=== PATIENT | female | born 1965 | race Caucasian/White ===

== ENCOUNTER 2020-01-29 10:38 | Emergency (ER) | payer OTHER, SELFPAY ==
--- NOTE | ~2020-01-29 | CT_ITS ---
EXAMINATION: CT lumbar spine wo [facility] EXAM DATE: 01/29/2020 11:20 INDICATION: worsened lumbar pain with radiation [id number]. TECHNIQUE: Spiral CT of the lumbar spine was performed without contrast. Axial, coronal and sagittal images were reviewed. The dose-length product (DLP) for this examination was 563.72 mGy-cm. The e xposure was tailored according to patient size (auto mA exposure control), and iterative reconstructi on (ASIR) was used as additional dose reduction technique. There is no prior study for comparison. FINDINGS: There is mild chronic compression fracture of the T12 vertebral body. Mild to moderate loss of the disc heights at L4-5 and L5-S1, mild at the other lumbar levels. There are no acute fractures identified. No spondylolysis. Paraspinal soft tissue is unremarkable. There are no osteoblastic or o steolytic lesions identified. Level by level evaluation: T12-L1: There is a mild diffuse disc bulge. Facet arthropathy: None. Neural foraminal stenosis: No stenosis. Central canal stenosis: No stenosis. L1-L2: There is a mild diffuse disc bulge. Facet arthropathy: None. Neural foraminal stenosis: No stenosis. Central canal stenosis: No stenosis. L2-L3: There is a mild diffuse disc bulge. Facet arthropathy: Mild. Neural foraminal stenosis: No stenosis. Central canal stenosis: No stenosis. L3-L4: There is a mild to moderate diffuse disc bulge. Facet arthropathy: Mild to moderate. Neural foraminal stenosis: Mild left. Central canal stenosis: Moderate. L4-L5: There is a mild to moderate diffuse disc bulge. Facet arthropathy: Moderate to severe. Neural foraminal stenosis: Moderate left mild to moderate right. Central canal stenosis: Moderate. L5-S1: There is a mild diffuse disc bulge. Facet arthropathy: Mild to moderate. Neural foraminal stenosis: No stenosis. Central canal stenosis: Mild to moderate. IMPRESSION: 1. Mild to moderate lumbar spondylosis. 2. Chronic T12 compression fracture. 3. No acute findings. Reviewed, dictated and finalized at location B. 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
[2020-01-29 10:58] VITALS: BP 106/87; PULSE 87; RESP 14; TEMP 36.6; O2SAT 99
[2020-01-29] MEDS: KETOROLAC 30 MG/ML VIAL (*BKC) IM (11:07)
--- NOTE | 2020-01-29 11:08 | ED.GENADULT ---
HPI - General Adult General Chief complaint: Back Pain/Injury Stated complaint: Back Pain Time Seen by Provider: 01/29/20 10:48 Source: patient Mode of arrival: ambulatory Limitations: no limitations History of Present Illness HPI narrative: Patient presents with chief complaint of exacerbation of low back pain that has exponentially increased in the past 48 hours. Patient states she has had low back pain for years however over the past 8 months her back pain has increased and cause radiation down both of her legs. Patient states her primary care is aware and she was started on meloxicam, Flexeril and gabapentin however they have not improve her symptoms. Patient states she also was prescribed physical therapy which ended a few months ago without any improvement in her symptoms. Patient states she has contacted her primary care multiple times to let her know and she was informed yesterday to present to the emergency department. Patient reports she has had x-rays of her lumbar spine and was informed that she had arthritis but she has not had any additional imaging. Patient denies loss of bowel or bladder function or saddle paresthesias. She states that she cannot lie flat due to increase of pain. She reports increased the pain with lifting her legs and walking. Patient states she also has peripheral neuropathy. Patient denies any activities recently that correlate to her exacerbation of her pain denies any falls or recent injuries. Related Data Allergies Allergy/AdvReac Type Severity Reaction Status Date / Time CITALOPRAM HYDROBROMIDE Allergy Hives Uncoded 01/29/20 11:06 Review of Systems Review of Systems: Narrative: CONSTITUTIONAL: Denies fever, chills, or sweats. EYES: Denies visual changes, redness, or discharge. ENT: Denies rhinorrhea, congestion, sore throat, or otalgia. CARDIOVASCULAR: Denies chest pain, palpitations, or edema. RESPIRATORY: Denies cough or dyspnea. GASTROINTESTINAL: Denies abdominal pain, nausea, vomiting, or diarrhea. GENITOURINARY: Denies dysuria or hematuria. SKIN: Denies rash or itching. MUSCULOSKELETAL: Denies back pain, joint pain, or myalgia. NEUROLOGIC: Denies headache, numbness, dizziness, or weakness. PSYCHIATRIC: Denies anxiety or depression. Exam Narrative: Exam Narrative: GENERAL: Well-appearing, well-nourished, and in no acute distress. HEAD: Normocephalic, atraumatic. EYES: PERRLA and EOMI. NECK: ROM intact CHEST: Clear to auscultation. No respiratory distress. No wheezes rales or rhonchi HEART: Regular rate and rhythm. No murmur heard. Normal peripheral pulses. BACK: No vertebral point tenderness along entire spine. sensation, cap refill, and pulses intact to distal extremities. No saddle paresthesias. gait and weight bearing intact. Patient refused to lay flat for straight leg raise test. Declined rectal exam. States rectum is fine. EXTREMITIES: Normal range of motion. No edema. SKIN: Warm, dry, no rash. NEURO: No focal deficits. Alert and oriented x3. PSYCH: Normal mood and affect. Course Vital Signs Vital signs: Vital Signs Temperature 97.9 F 01/29/20 10:58 Pulse Rate 87 01/29/20 10:58 Respiratory Rate 14 01/29/20 10:58 Blood Pressure 106/87 01/29/20 10:58 Pulse Oximetry 99 01/29/20 10:58 Temperature 97.9 F 01/29/20 10:58 Pulse Rate 87 01/29/20 10:58 Respiratory Rate 14 01/29/20 10:58 Blood Pressure 106/87 01/29/20 10:58 Pulse Oximetry 99 01/29/20 10:58 Medical Decision Making MDM Narrative Medical decision making narrative: Patient has chronic spinal changes to her CT without acute findings. Patient not displaying signs of cauda equina. Discussed with patient she needs to follow up with her PCP regarding MRI, pain management and further treatment plan an options. Informed patient that narcotic prescription should be discussed with her PCP and due to chronic nature is not appropriate for ED discharge. Patient has been prescribed meloxicam,
[2020-01-29 11:17] LABS: Add Urine Microscopic? YES; Appearance Urine Clear (Clear); Bilirubin Urine Negative (Negative); Blood Urine 2+ (Negative); Color Urine Yellow (Yellow); Glucose Urine UA Negative (Negative); Ketones Urine Negative (Negative); Leukocyte Esterase Ur Negative LEU/UL (Negative); Mucus Urine Rare /lpf; Nitrate Urine Negative (Negative); Protein Urine Negative (Negative); RBC Urine 0-2 /hpf (0-2); Specific Grav Ur 1.016 (1.001-1.035); Squamous Epithelial Cell Urine Rare /hpf (Few); Urobilinogen Urine Negative mg/dL (<2.0); WBC Urine 0-3 /hpf
[2020-01-29 12:11] VITALS: BP 100/73; PULSE 74; RESP 18; O2SAT 98
== END 2020-01-29 12:12 | disposition home or self-care (01) ==
PROVIDERS: Physician Assistant; Emergency Provider Emergency Medicine; PCP Nurse Practitioner Family
DX: M47.816 Spondylosis without myelopathy or radiculopathy, lumbar region (principal); M48.54XA Collapsed vertebra, not elsewhere classified, thoracic region, initial encounter for fracture
CPT/HCPCS: 72131; 81001; 81025; 96372; 99284; J1885

== ENCOUNTER 2021-02-03 18:16 | Emergency (ER) | payer OTHER, SELFPAY ==
[2021-02-03 18:37] VITALS: BP 122/67; PULSE 76; RESP 16; TEMP 37.5; O2SAT 99
--- NOTE | 2021-02-03 18:51 | ED.WOUNDLAC ---
HPI - Wound/Laceration General Chief Complaint: Wound/Laceration Stated Complaint: infected incision Time Seen by Provider: 02/03/21 18:51 Source: patient, RN notes reviewed and old records reviewed Mode of arrival: ambulatory Limitations: no limitations History of Present Illness HPI narrative: 55-year-old female presents to the [facility] with drainage from a surgical site that was done at [place]. Patient reports that she had an appendectomy on 18 January. She followed up with the surgeon on 29 January and states all was good. Green-yellow drainage thick with redness and irritation was noted. Patient states it was mildly red when she was at the follow-up appointment. Patient reports that Tuesday she feels like busted open 1 cm open area with a very large indurated area of 10 cm x 5 cm Denies fevers. Very tender in the lower suprapubic area around the surgical site which is red and indurated. Related Data Home Medications Medication Instructions Recorded Confirmed Allergy (diphenhydramine) 02/03/21 acetaminophen 1,000 mg PO Q6H PRN 02/03/21 02/03/21 atorvastatin 02/03/21 cetirizine mg 02/03/21 docusate sodium 100 mg PO BID 02/03/21 02/03/21 duloxetine mg PO 02/03/21 fluticasone propionate INTRANASAL 02/03/21 ibuprofen 400 mg PO Q6H PRN 02/03/21 02/03/21 levothyroxine [Euthyrox] 02/03/21 methocarbamol 1,000 mg PO TID 02/03/21 02/03/21 oxycodone 02/03/21 pantoprazole PO 02/03/21 Allergies Allergy/AdvReac Type Severity Reaction Status Date / Time CITALOPRAM HYDROBROMIDE Allergy Hives Uncoded 02/04/21 11:45 Review of Systems Review of Systems: All systems reviewed & are unremarkable except as noted in HPI and below Constitutional: Constitutional: Reports no additional constitutional complaints and Denies chills Eyes: Eyes: Reports no additional eye complaints ENT: Reports system reviewed and no additional complaints, except as documented Cardiovascular: Cardiovascular: Reports no additional cardiovascular complaints Respiratory: Respiratory: Reports no additional respiratory complaints, Denies cough, Denies dyspnea and Denies wheezing Gastrointestinal: Gastrointestinal: Reports abdominal pain (Suprapubic), Denies nausea and Denies vomiting Genitourinary: Genitourinary: Reports no additional female genitourinary complaints Musculoskeletal: Musculoskeletal: Reports no additional musculoskeletal complaints Integumentary/Breasts: Skin/Breast: Reports as per HPI and Reports erythema Neurologic: Reports system reviewed and no additional complaints, except as documented Psychiatric: Psychiatric: Reports no additional psychiatric complaints Allergic/Immunologic: Allergic/Immunologic: Reports no additional allergic/immunologic complaints PMFSH Past Medical History Medical History (Updated 02/05/21 @ 08:47 by Louann Mckay) High cholesterol Thyroid disorder Surgical History Surgical History (Updated 02/05/21 @ 08:45 by Louann Mckay) Hx of appendectomy January 2021 Comments At the time of my signature, I reviewed and agree with the nursing past medical, surgical, social, and family history. There is no relevant family history pertinent to the patient complaint. Exam Const: General: healthy appearing, no acute distress and alert Nutritional Appearance: well nourished Orientation/consciousness: patient oriented x3 Limitations: no limitations HENMT: Head: normal to inspection Ears: external ears normal Eyes: Pupils: Equal, round and reactive pupils present Neck: Neck: normal visual inspection Chest: Chest palpation & inspection: normal inspection of the chest Resp: Effort & Inspection: normal respiratory effort Auscultation: clear to auscultation bilaterally Cardio: Rate: regular rate Rhythm: regular rhythm GI: GI Palp: Yes Soft to palpation and Yes Tenderness to palpation present (GI) (Suprapubic around red warm area, surgical site) Back/Spine/Pelvis: Back: no CVA
== END 2021-02-03 19:18 | disposition short-term general hospital (02) ==
PROVIDERS: Emergency Provider Nurse Practitioner
DX: T81.31XA Disruption of external operation (surgical) wound, not elsewhere classified, initial encounter (principal); T81.40XA Infection following a procedure, unspecified, initial encounter; L03.311 Cellulitis of abdominal wall; E78.00 Pure hypercholesterolemia, unspecified; E03.9 Hypothyroidism, unspecified
CPT/HCPCS: 99212; G0463

== ENCOUNTER 2021-02-04 10:15 | Emergency (ER) | payer OTHER, SELFPAY ==
[2021-02-04 10:21] VITALS: BP 114/74; PULSE 73; RESP 16; TEMP 36; O2SAT 97
--- NOTE | 2021-02-04 12:19 | ED.WOUNDLAC ---
HPI - Wound/Laceration General Chief Complaint: Wound/Laceration Stated Complaint: SURGICAL WOUND OPENED Time Seen by Provider: 02/04/21 11:18 Source: patient Mode of arrival: ambulatory Limitations: no limitations History of Present Illness HPI narrative: 55-year-old s/p laparoscopic appendectomy done on 1210 here with complaints of wound dehiscence. Patient states she did follow with her surgeon few days ago everything was going well last night her grandson poked her in the belly with a box and the wound opened up. She denies any fever or chills. Had very minimal bleeding. Onset (ago): day(s) (1) Location: abdomen Place: home Context: accidental Associated symptoms: none Related Data Home Medications Medication Instructions Recorded Confirmed Allergy (diphenhydramine) 02/03/21 acetaminophen 1,000 mg PO Q6H PRN 02/03/21 02/03/21 atorvastatin 02/03/21 cetirizine mg 02/03/21 docusate sodium 100 mg PO BID 02/03/21 02/03/21 duloxetine mg PO 02/03/21 fluticasone propionate INTRANASAL 02/03/21 ibuprofen 400 mg PO Q6H PRN 02/03/21 02/03/21 levothyroxine [Euthyrox] 02/03/21 methocarbamol 1,000 mg PO TID 02/03/21 02/03/21 oxycodone 02/03/21 pantoprazole PO 02/03/21 Allergies Allergy/AdvReac Type Severity Reaction Status Date / Time CITALOPRAM HYDROBROMIDE Allergy Hives Uncoded 02/04/21 11:45 Review of Systems Review of Systems: All systems reviewed & are unremarkable except as noted in HPI and below Constitutional: Constitutional: Reports no additional constitutional complaints Eyes: Eyes: Reports no additional eye complaints ENT: Reports system reviewed and no additional complaints, except as documented Cardiovascular: Cardiovascular: Reports no additional cardiovascular complaints Respiratory: Respiratory: Reports no additional respiratory complaints Gastrointestinal: Gastrointestinal: Reports no additional gastrointestinal complaints Musculoskeletal: Musculoskeletal: Reports no additional musculoskeletal complaints Integumentary/Breasts: Skin/Breast: Reports as per HPI Neurologic: Reports system reviewed and no additional complaints, except as documented Exam Narrative: GENERAL: Well-appearing, well-nourished, and in no acute distress. HEAD: Normocephalic, atraumatic. EYES: PERRLA and EOMI. ENT: Nares clear, no rhinorrhea or epistaxis. Mucous membranes moist. NECK: Supple. CHEST: Clear to auscultation. No respiratory distress. HEART: Regular rate and rhythm. No murmur heard. Normal peripheral pulses. ABDOMEN: Soft, nontender, surgical scar in the supra pubic area , with a wound , skin is erythematous very minimal bloody drainage. normal active bowel sounds. EXTREMITIES: Normal range of motion. No edema. SKIN: Warm, dry, no rash. NEURO: No focal deficits. Alert and oriented x3. PSYCH: Normal mood and affect. Course Course Emergency Course: Inform patient about wound care. Advised her to take antibiotic as prescribed. Follow-up with the her surgeon in the next few days Vital Signs Vital signs: Vital Signs Temperature 36.0 C L 02/04/21 10:21 Pulse Rate 73 02/04/21 10:21 Respiratory Rate 16 02/04/21 10:21 Blood Pressure 114/74 02/04/21 10:21 Pulse Oximetry 97 02/04/21 10:21 Temperature 36.0 C L 02/04/21 10:21 Pulse Rate 73 02/04/21 10:21 Respiratory Rate 16 02/04/21 10:21 Blood Pressure 114/74 02/04/21 10:21 Pulse Oximetry 97 02/04/21 10:21 Discharge Plan Discharge Clinical Impression: Surgical wound dehiscence Qualifiers: Encounter type: initial encounter Qualified Code(s): T81.31XA - Disruption of external operation (surgical) wound, not elsewhere classified, initial encounter Patient Disposition: Home, Self-Care Condition: Stable Instructions: Antibiotic Form, Wound Dehiscence (ED) Additional Instructions: follow with your surgeon , take antibiotic as prescribed. Prescriptions: New cephalexin 500 mg capsule 500 mg PO
[2021-02-04 12:36] VITALS: BP 154/75; PULSE 78; RESP 18; O2SAT 100
== END 2021-02-04 12:37 | disposition home or self-care (01) ==
PROVIDERS: Emergency Provider Family Medicine; PCP Nurse Practitioner Family
DX: T81.31XA Disruption of external operation (surgical) wound, not elsewhere classified, initial encounter (principal)
CPT/HCPCS: 99283

== ENCOUNTER 2021-09-23 12:52 | Observation (INO) | payer OTHER, SELFPAY ==
[2021-09-23] VITALS (15 sets, daily range): BP systolic 107–128; BP diastolic 55–80; PULSE 57–87; RESP 15–20; TEMP 36.6; O2SAT 93–100; BMI 26.0
--- NOTE | ~2021-09-23 | XR_ITS ---
XR knee LT min 4V 09/23/2021 15:12 INDICATION: Left knee pain after fall PROCEDURE: 4 views left knee COMPARISON: No prior studies for comparison. FINDINGS: Fracture, dislocation or subluxation is not identified. No significant joint effusion. The soft tissues appear within normal limits. No foreign bodies are identified. IMPRESSION: 1: NO ACUTE BONE OR JOINT ABNORMALITY IDENTIFIED. Reviewed, dictated and finalized at location B.
--- NOTE | ~2021-09-23 | XR_ITS ---
EXAMINATION: XR chest 2V 09/23/2021 13:58 INDICATION: Status post fall. PROCEDURE: 2 view chest COMPARISON: No prior studies for comparison. FINDINGS: The lungs are clear. The cardiomediastinal silhouette is within normal limits. There are no pleural effusions. There is no pneumothorax suspected. IMPRESSION: 1: NO ACUTE CARDIOPULMONARY DISEASE. Reviewed, dictated and finalized at location B.
--- NOTE | ~2021-09-23 | XR_ITS ---
EXAMINATION: XR hip BI 2V w AP pelvis DATE: 09/23/2021 13:58 INDICATION: Pelvic pain. Fall. TECHNIQUE: An anteroposterior view of the pelvis and 2 views of each hip were obtained. COMPARISON: None. FINDINGS: There is lumbar dextrocurvature and mild spondylosis. No fracture. There is severe osteoart hritis of the hips. IMPRESSION: 1. Severe osteoarthritis of the hips. Reviewed, dictated and finalized at location A.
--- NOTE | ~2021-09-23 | XR_ITS ---
EXAMINATION: XR knee RT min 4V DATE: 09/23/2021 13:58 INDICATION: Right knee pain. Injury. TECHNIQUE: 4 views of right knee were obtained. COMPARISON: None. FINDINGS: Bone alignment is normal. There is a comminuted fracture involving intercondylar eminence o f the proximal tibia and the medial tibial plateau. There is no displacement at the articular surface of the medial tibial plateau. There is mild tricompartmental osteoarthritis. There is a large lipohe marthrosis. IMPRESSION: 1. Comminuted fracture involve the intercondylar eminence of the proximal tibia and the medial tibial plateau. 2. Mild right knee osteoarthritis. 3. Large lipohemarthrosis. Reviewed, dictated and finalized at location A.
--- NOTE | ~2021-09-23 | XR_ITS ---
XR shoulder RT min 2V 09/23/2021 13:58 Indication: Status post fall. Right shoulder pain. Procedure: 4 views right shoulder Comparison: No prior studies for comparison. Findings: There is mild degenerative change of the glenohumeral joint. No fracture, subluxation or di slocation. No significant soft tissue abnormality. There is anatomic alignment. Visualized lung paren chyma is unremarkable. Impression: 1: Mild osteoarthritis of the right shoulder. Reviewed, dictated and finalized at location B. Impression: 1: Mild osteoarthritis of the right shoulder.
--- NOTE | ~2021-09-23 | CT_ITS ---
EXAMINATION: CT knee RT wo con DATE: 09/24/2021 15:16 INDICATION: Right knee fracture. TECHNIQUE: Computed tomography (CT) of the right knee was performed without intravenous contrast. Aut omated exposure control and iterative reconstruction technique were employed. The dose-length product was 514.78 mGy-cm. COMPARISON: Right knee radiographs 09/23/2021 FINDINGS: There is a comminuted fracture of proximal tibia involving the intercondylar eminence and m edial and lateral tibial plateaus. At the lateral tibial plateau, there is incongruence of the articu lar surface medially. At the medial tibial plateau, there is a 2 mm fracture gap. There are tiny oste ophytes in all 3 compartments. There is a large lipohemarthrosis. There is a small Hawkins's cyst conta ining hematoma and fat. There is hematoma along the medial head of gastrocnemius and soleus muscles. IMPRESSION: 1. Comminuted bicondylar fracture of proximal tibia. 2. Mild right knee osteoarthritis. 3. Large lipohemarthrosis. Reviewed, dictated and finalized at location A.
--- NOTE | ~2021-09-23 | CT_ITS ---
EXAMINATION: CT thoracic lumbar wo con DATE: 09/23/2021 13:29 INDICATION: Back pain after fall TECHNIQUE: Computed tomography (CT) of the thoracic and lumbar spine was performed without intravenou s contrast. The dose-length product was 972.95 mGy-cm. Automated exposure control and iterative recon struction technique were employed. COMPARISON: CT lumbar spine dated 01/29/2020 FINDINGS: Lumbar spine: There is a mild chronic superior endplate compression fracture of T12 unchanged from pr ior study. There is mild disc narrowing at L5-S1. There is facet hypertrophy at L3-4, L4-5 and L5-S1 with grade 1 degenerative spondylolisthesis at L4-5. No significant paraspinal soft tissue abnormalit y. There are are mild symmetric degenerative changes of the sacroiliac joints. Thoracic spine: There is mild multilevel thoracic spondylosis. Chronic unchanged T12 superior endplate compression fr acture. There are prosthetic disc devices in the lower cervical spine. IMPRESSION: 1. Stable mild superior endplate compression fracture of T12. 2: Mild multilevel thoracic and lumbar spondylosis. Reviewed, dictated and finalized at location B.
--- NOTE | ~2021-09-23 | CT_ITS ---
EXAMINATION: CT knee LT wo con DATE: 09/24/2021 15:15 INDICATION: Left knee fracture. TECHNIQUE: Computed tomography (CT) of the left knee was performed without intravenous contrast. Auto mated exposure control and iterative reconstruction technique were employed. The dose-length product was 569.29 mGy-cm. COMPARISON: Left knee radiographs 09/23/2021 FINDINGS: Bone alignment is normal. No fracture. There is mild osteoarthritis of medial and patellofe moral compartments. No knee joint effusion. There is a 6 mm loose body in Hoffa's fat. IMPRESSION: 1. No fracture. 2. Mild left knee osteoarthritis. Reviewed, dictated and finalized at location A.
--- NOTE | 2021-09-23 13:13 | ED.LOWEXIN ---
HPI - Extremity Injury (Lower) General Chief Complaint: Extremity Injury, Lower <Africa Huerta PA-C - Last Filed: 09/23/21 18:21> Stated Complaint: fall, knee pain <Africa Huerta PA-C - Last Filed: 09/23/21 18:21> Time Seen by Provider: 09/23/21 12:54 <Africa Huerta PA-C - Last Filed: 09/23/21 18:21> Source: patient <TYRONE Woodward Last Filed: 09/23/21 18:21> Mode of arrival: EMS <TYRONE Woodward Last Filed: 09/23/21 18:21> Limitations: no limitations <Africa Huerta PA-C - Last Filed: 09/23/21 18:21> History of Present Illness HPI Narrative: This is a 56 year old female that presents to the ER for right knee pain after an injury today. Reports she was pulled off her porch by her dog. She fell about 4 feet. Reports landing on her right side. Denies hitting her head or loss of consciousness. Reports since she has had right knee pain, right hip pain, and right shoulder pain. Also reports mid to low back pain. Denies vision changes, vomiting, saddle anesthesia or bowel/bladder incontinence. <Africa Huerta PA-C - Last Filed: 09/23/21 18:21> Related Data Home Medications: Home Medications Medication Instructions Recorded Confirmed atorvastatin 40 mg tablet 80 mg PO DAILY 02/03/21 09/23/21 cetirizine 10 mg tablet 10 mg PO DAILY 02/03/21 09/23/21 docusate sodium 100 mg tablet 100 mg PO BID 02/03/21 09/23/21 levothyroxine 150 mcg tablet 150 mcg PO DAILY 02/03/21 09/23/21 (Euthyrox) methocarbamol 500 mg tablet 1,000 mg PO TID 02/03/21 09/23/21 pantoprazole 40 mg tablet,delayed 40 mg PO DAILY 02/03/21 09/23/21 release Benadryl 100 mg PO BID 09/23/21 09/23/21 Fish Oil 2,400 mg PO DAILY 09/23/21 09/23/21 Vitamin D3 2,000 unit PO DAILY 09/23/21 09/23/21 fluticasone propionate 50 2 spray intranasal DAILY 09/23/21 09/23/21 mcg/actuation nasal spray,suspension gabapentin 300 mg capsule 300 mg PO TID 09/23/21 09/23/21 latanoprost 0.005 % eye drops 1 drp EACH EYE HS 09/23/21 09/23/21 meloxicam 15 mg tablet 7.5 mg PO BID PRN Pain 09/23/21 09/23/21 <Africa Huerta PA-C - Last Filed: 09/23/21 18:21> Allergies/Adverse Reactions: Allergies Allergy/AdvReac Type Severity Reaction Status Date / Time citalopram [From Celexa] Allergy Hives Verified 09/23/21 13:04 <Africa Huerta PA-C - Last Filed: 09/23/21 18:21> Review of Systems Review of Systems: CONSTITUTIONAL: Denies fever EYES: Denies visual changes CARDIOVASCULAR: Denies chest pain GASTROINTESTINAL: Denies vomiting MUSCULOSKELETAL: Reports back pain, joint pain, and myalgia. NEUROLOGIC: Denies headache, numbness, or weakness. <Africa Huerta PA-C - Last Filed: 09/23/21 18:21> All systems reviewed & are unremarkable except as noted in HPI and below <Africa Huerta PA-C - Last Filed: 09/23/21 18:21> [facility] Past Medical History Medical History: Medical History (Updated 09/23/21 @ 18:21 by Africa Huerta PA-C) High cholesterol Thyroid disorder <Africa Huerta PA-C - Last Filed: 09/23/21 18:21> Surgical History Surgical History: Surgical History (Updated 02/05/21 @ 08:45 by Louann Mckay APRN) Hx of appendectomy January 2021 <Africa Huerta PA-C - Last Filed: 09/23/21 18:21> Social History Social History: Social History (Updated 09/23/21 @ 13:15 by Africa Huerta PA-C) Substance use: never <Africa Huerta PA-C - Last Filed: 09/23/21 18:21> Exam Narrative: GENERAL: Well-appearing, well-nourished, and in no acute distress. HEAD: Normocephalic, atraumatic. EYES: PERRLA and EOMI. ENT: Nares clear, no rhinorrhea or epistaxis. Mucous membranes moist. Oropharynx without tonsillar hypertrophy exudate or other lesions. Bilateral TMs pearly ni non-bulging NECK: Supple. No adenopathy or masses. No midline cervical spine tenderness CHEST: Clear to auscultation. No respiratory distress. No wheezes rales or rhonchi HEART: Regular rate
[2021-09-23] MEDS: HYDROcodone/acetaminophen (*CRX) 5-325 MG TABLET 1 TAB PO (15:28)
--- NOTE | 2021-09-23 15:48 | PC.NURSE ---
when pt tried ambulating w/ crutches pt states she cannot put any weight on her L leg due to the amount of pain. EMILIA Huerta made aware.
[2021-09-23] MEDS: MORPHINE SULFATE (*CRX) 4 MG/ML INJ IV PUSH (20:56)
[2021-09-23] MEDS: ONDANSETRON INJ 4 MG/2 ML VIAL IV PUSH (20:56)
--- NOTE | 2021-09-23 21:10 | ADMGEN ---
This patient, Maryse Guadarrama, was admitted to Medical Room 344-01. Patient/family oriented to hospital policies and general routines including ID bracelet, bed and alarms, visiting hours, pain management, procedures, bathroom and other care routines, personal items, smoking policy, room service/diet, and visiting hours. Information on how to activate the Rapid Response Team has been discussed. Patient/Family are encouraged to report perceived risks to care and to ask questions if they do not understand what they are told or what they should do.
--- NOTE | 2021-09-23 22:27 | PM.IMHP ---
H&P: HPI History of Present Illness Date/Time: 09/23/21 22:27 Chief Complaint: Acute fracture Narrative: Greater than 30 minutes spent reviewing chart, evaluating, treating, counseling patient. Anticipate less than 48 hour admission, will admit under observation. 56-year-old female past medical history of hypothyroidism, hyperlipidemia. Presents for right knee pain after an injury. She was pulled off her porch by her dog and fell 4 ft. Denies hitting her head or any loss of consciousness. Workup in ED remarkable for comminuted fracture involving the intercondylar eminence of the proximal tibia and medial tibial plateau of the right leg. Ortho was consulted, recommended conservative management and patient was placed in a knee immobilizer. Review of Systems Review of Systems: Ten point ROS reviewed, negative unless otherwise specified per HPI [facility] Past Medical History Medical History (Updated 09/23/21 @ 22:33 by Nino Sarah DO) High cholesterol Thyroid disorder Surgical History Surgical History (Updated 02/05/21 @ 08:45 by Louann Mckay, LEADERSHIP INTERN) Hx of appendectomy January 2021 Social History Social History (Updated 09/23/21 @ 13:15 by Africa Huerta PA-C) Substance use: never Meds Home Medications and Allergies Home Medications Medication Instructions Recorded Confirmed Type atorvastatin 40 mg tablet 80 mg PO DAILY 02/03/21 09/23/21 History cetirizine 10 mg tablet 10 mg PO DAILY 02/03/21 09/23/21 History docusate sodium 100 mg tablet 100 mg PO BID 02/03/21 09/23/21 History levothyroxine 150 mcg tablet 150 mcg PO DAILY 02/03/21 09/23/21 History (Euthyrox) methocarbamol 500 mg tablet 1,000 mg PO TID 02/03/21 09/23/21 History pantoprazole 40 mg tablet,delayed 40 mg PO DAILY 02/03/21 09/23/21 History release Benadryl 100 mg PO BID 09/23/21 09/23/21 History Fish Oil 2,400 mg PO DAILY 09/23/21 09/23/21 History Vitamin D3 2,000 unit PO DAILY 09/23/21 09/23/21 History aripiprazole 2 mg tablet 2 mg PO HS 09/23/21 09/23/21 History duloxetine 60 mg capsule,delayed 60 mg PO DAILY 09/23/21 09/23/21 History release fluticasone propionate 50 2 spray intranasal DAILY 09/23/21 09/23/21 History mcg/actuation nasal spray,suspension gabapentin 300 mg capsule 300 mg PO TID 09/23/21 09/23/21 History latanoprost 0.005 % eye drops 1 drp EACH EYE HS 09/23/21 09/23/21 History meloxicam 15 mg tablet 7.5 mg PO BID PRN Pain 09/23/21 09/23/21 History Allergies Allergy/AdvReac Type Severity Reaction Status Date / Time citalopram [From Curio] Allergy Hives Verified 09/23/21 22:11 Vital Signs Vital Signs - 24 hr 09/23/21 12:50 09/23/21 14:21 09/23/21 18:05 Temperature 97.8 F Pulse Rate 60 58 L 57 L Respiratory Rate 18 15 18 Blood Pressure 107/73 110/67 128/80 Pulse Oximetry 95 97 93 Oxygen Delivery Room Air 09/23/21 19:05 09/23/21 12:56 09/23/21 13:00 Temperature Pulse Rate 60 Respiratory Rate 18 Blood Pressure 128/80 Pulse Oximetry 97 94 97 Oxygen Delivery 09/23/21 13:58 09/23/21 18:57 09/23/21 19:02 Temperature Pulse Rate Respiratory Rate Blood Pressure Pulse Oximetry 98 95 100 Oxygen Delivery 09/23/21 19:21 09/23/21 19:31 09/23/21 19:45 Temperature Pulse Rate 87 Respiratory Rate 20 Blood Pressure 128/80 Pulse Oximetry 97 95 97 Oxygen Delivery 09/23/21 20:00 09/23/21 20:01 09/23/21 20:15 Temperature Pulse Rate 67 Respiratory Rate 20 Blood Pressure 107/55 L Pulse Oximetry 100 96 95 Oxygen Delivery Exam Const: General: comfortable and no acute distress HENMT: Mouth: Yes moist mucous membranes Eyes: General: appearance normal, both eyes and all related structures Sclera: sclerae normal Pupils: Equal, round and reactive pupils present Resp: Effort & Inspection: normal respiratory effort Auscultation: clear to auscultation bilaterally Cardio: Rate: regular rate Rhythm: regular rhythm
[2021-09-23] MEDS: methocarbamoL 500 MG TABLET 1000 MG PO (23:06)
[2021-09-23] MEDS: ACETAMINOPHEN 500 MG TABLET 1000 MG PO (23:07)
[2021-09-23] MEDS: GABAPENTIN 300 MG CAPSULE 600 MG PO (23:08)
[2021-09-24] VITALS: BP 132/73; PULSE 56; RESP 16; TEMP 36.7; O2SAT 97
[2021-09-24 06:02] LABS: Basophils Percent Auto 0.3 % (0.2-1.2); Eosinophils Absolute Auto 0.1 K/mm3 (0-0.3); Eosinophils Percent Auto 1.6 % (0-4.4); Hematocrit 50.2 % (37.0-47.0); Hemoglobin 16.5 g/dL (12.0-15.0); Immature Granulocyte Absolute 0.02 K/mm3 (0.00-0.031); Immature Granulocyte Percent A 0.3 % (0-0.5); Lymphocytes Absolute Auto 2.96 K/mm3 (0.9-3.2); Lymphocytes Percent Auto 47.1 % (18.3-44.2); Mean Corpuscular HGB Conc 32.9 g/dl (32-36); Mean Corpuscular Volume 97.5 fl (80-100); Mean Platelet Volume 9.7 fl (7.4-10.4); Monocytes Absolute Auto 0.5 K/mm3 (0.1-0.6); Monocytes Percent Auto 8.6 % (2.6-8.5); Neutrophils Absolute Auto 2.7 K/mm3 (1.3-6.7); Neutrophils Percent Auto 42.1 % (45.5-73.1); Platelet Count Result 173 k/mm3 (150-375); Red Blood Count 5.15 M/mm3 (4.2-5.4); Red Cell Distribution Width 13.8 % (11.5-14.5); White Blood Count 6.3 K/mm3 (4.5-10.0)
[2021-09-24 06:15] LABS: Anion Gap 5 mmol/L (8-16); Blood Urea Nitrogen 15 mg/dL (7-17); Carbon Dioxide 28 mmol/L (22-30); Chloride 104 mmol/L (98-107); Estimated CRCL calculation 70 ml/min; Estimated Glomerular Filt Rate > 60; Glucose 108 mg/dL (65-110); Potassium 4.2 mmol/L (3.4-5.0); Sodium 137 mmol/L (137-145)
[2021-09-24] MEDS: ACETAMINOPHEN 500 MG TABLET 1000 MG PO ×4 (06:31→23:27)
[2021-09-24] MEDS: LEVOTHYROXINE SODIUM 150 MCG TABLET PO (06:31)
--- NOTE | 2021-09-24 07:11 | PCOTNOTE ---
Patient needs weight bearing status entered prior to completing OT evaluation. Will follow.
[2021-09-24 08:00] VITALS: BP 112/66; PULSE 51; RESP 18; TEMP 36.6; O2SAT 99
--- NOTE | 2021-09-24 08:05 | PCPTNOTE ---
Patient needs weight bearing status entered prior to completing PT evaluation. Will follow.
[2021-09-24] MEDS: DOCUSATE SODIUM 100 MG CAPSULE PO ×2 (09:11→17:08)
[2021-09-24] MEDS: GABAPENTIN 300 MG CAPSULE 600 MG PO ×3 (09:11→17:08)
[2021-09-24] MEDS: methocarbamoL 500 MG TABLET 1000 MG PO ×3 (09:12→17:08)
[2021-09-24] MEDS: PANTOPRAZOLE 40 MG TABLET PO (09:12)
[2021-09-24] MEDS: oxyCODONE HCL (*CRX) 5 MG TAB IR 10 MG PO ×3 (09:15→19:44)
[2021-09-24] MEDS: ENOXAPARIN 40 MG/0.4 ML SYRINGE SUB-Q (09:20)
--- NOTE | 2021-09-24 13:02 | PM.CNOR ---
Assessment and Plan Assessment and plan (1) Closed fracture of right tibial plateau: Qualifiers: Encounter type: initial encounter Qualified Code(s): S82.141A - Displaced bicondylar fracture of right tibia, initial encounter for closed fracture Code(s): S82.141A - Displaced bicondylar fracture of right tibia, initial encounter for closed fracture Status: Acute Assessment and Plan: New patient evaluation for chief complaint right knee fracture and left knee pain with injury. History, physical exam and radiographs reviewed with the patient. Discussed the condition, nature, etiology and course of natural history with the patient. Treatment options including surgical and nonoperative treatment were reviewed. Risks and benefits of each as well as alternatives reviewed. The patient's questions were answered. Conservative treatment ice, compression and elevation. Patient with knee immobilizer for the right. Unable to bear weight secondary to pain on the left. Continue with conservative treatment. CT scan of the right and left knee to evaluate for right knee fracture and possible left knee occult fracture. (2) Knee fracture, left: Status: Acute Assessment and Plan: Knee pain with motion and weight-bearing. Radiographs reviewed and negative but patient with significant pain. Plan CT scan to evaluate for occult fracture or injury left knee. History of Present Illness HPI Consult date: 09/24/21 Requesting physician: Africa Huerta PA-C Chief complaint: Right tibial plateau fracture Narrative: 56-year-old woman who was at home on her porch. Her dog was lesions. She states that she was squatting when the dog ran and pulled her over injuring both the right and left knee. She was unable to bear weight. Emergency room radiographs found right knee fracture. She was unable to bear weight on the left knee and was admitted for further care and workup. She denies numbness or tingling. Denies any prior problems with her knees. Review of Systems Constitutional: Constitutional: Denies fever(s) Eyes: Eyes: Denies blurry vision ENT: Reports Normal hearing present Cardiovascular: Cardiovascular: Denies chest pain and Denies dyspnea Respiratory: Respiratory: Denies dyspnea and Denies wheezing Gastrointestinal: Gastrointestinal: Denies abdominal pain Genitourinary: Genitourinary: Denies urinary urgency Musculoskeletal: Musculoskeletal: Reports as per HPI and Denies numbness Integumentary/Breasts: Skin/Breast: Denies changing lesions and Denies sores Neurologic: Reports Normal hearing present, Denies behavioral changes, Denies confusion, Denies numbness and Denies convulsions Psychiatric: Psychiatric: Denies behavioral changes, Denies confusion and Denies hallucinations Endocrine: Endocrine: Denies heat intolerance Hematologic/Lymphatic: Hematologic/Lymphatic: Denies easy bleeding Allergic/Immunologic: Allergic/Immunologic: Denies wheezing [facility] Past Medical History Medical History (Updated 09/24/21 @ 13:05 by Juan Miguel Osman MD) High cholesterol Knee fracture, left Thyroid disorder Surgical History Surgical History Hx of appendectomy January 2021 Family History Family History Other Unknown family medical history Social History Social History Smoking packs per day: 1 Smoking cigarettes per day: 20.0 Smoking status: Current every day smoker Alcohol intake: current Drinks per week: 2 Substance use: never Spiritual care concerns: No Meds Home Medications and Allergies Home Medications Medication Instructions Recorded Confirmed Type atorvastatin 40 mg tablet 80 mg PO DAILY 02/03/21 09/23/21 History cetirizine 10 mg tablet 10 mg PO DAILY 02/03/21 09/23/21 History docusate sodium
[2021-09-24 14:00] VITALS: BP 108/64; PULSE 59; RESP 20; TEMP 36.8; O2SAT 98
--- NOTE | 2021-09-24 16:33 | PM.IMPN ---
Progress Note: A&P Assessment and Plan (1) Closed fracture of right tibial plateau: Qualifiers: Encounter type: initial encounter Qualified Code(s): S82.141A - Displaced bicondylar fracture of right tibia, initial encounter for closed fracture Code(s): S82.141A - Displaced bicondylar fracture of right tibia, initial encounter for closed fracture Status: Acute Assessment and Plan: Ortho consult, recommending conservative management. Patient placed in knee immobilizer. Pain meds ordered. PT/OT consulted 09/24/2021 interval history: status post fall and fracture of right tibia patient seen by Orthopedics recommended conservative management with knee mobilizer, ice, no weight-bearing on right lower extremity, to further evaluate the surgeon has ordered CT scan of bilateral knee to rule out of occult fracture, will continue PT OT and further recommendation to follow (2) Thyroid disorder: Code(s): E07.9 - Disorder of thyroid, unspecified Status: Acute Assessment and Plan: Continue Synthroid, check TSH (3) Fibromyalgia: Code(s): M79.7 - Fibromyalgia Status: Acute Assessment and Plan: Continue home meds, gabapentin increased to 600 t.i.d. Subjective Date/time seen: 09/24/21 16:33 HPI-Narrative: Greater than 30 minutes spent reviewing chart, evaluating, treating, counseling patient.? Anticipate less than 48 hour admission, will admit under observation. 56-year-old female past medical history of hypothyroidism, hyperlipidemia.? Presents for right knee pain after an injury.? She was pulled off her porch by her dog and fell 4 ft.? Denies hitting her head or any loss of consciousness.? Workup in ED remarkable for comminuted fracture involving the intercondylar eminence of the proximal tibia and medial tibial plateau of the right leg.? Ortho was consulted, recommended conservative management and patient was placed in a knee immobilizer. 09/24/2021 interval history: status post fall and fracture of right tibia patient seen by Orthopedics recommended conservative management with knee mobilizer, ice, no weight-bearing on right lower extremity, to further evaluate the surgeon has ordered CT scan of bilateral knee to rule out of occult fracture, will continue PT OT and further recommendation to follow Review of Systems Constitutional: Constitutional: Denies fever(s) Exam Narrative: Patient is comfortable, NAD HEENT: eyes are clear and none icteric LUNGS: normal respiratory effort ABD: not distended Lower extremities: no edema MS: bilateral lower extremity no obvious deformity SKIN: nonjaundiced Neuro: grossly intact. Objective Data Vital Signs Vital Signs: Vital Signs - 24 hr 09/23/21 18:05 09/23/21 19:05 09/23/21 18:57 Temperature Pulse Rate 57 L 60 Respiratory Rate 18 18 Blood Pressure 128/80 128/80 Pulse Oximetry 93 97 95 Oxygen Delivery 09/23/21 19:02 09/23/21 19:21 09/23/21 19:31 Temperature Pulse Rate 87 Respiratory Rate 20 Blood Pressure 128/80 Pulse Oximetry 100 97 95 Oxygen Delivery 09/23/21 19:45 09/23/21 20:00 09/23/21 20:01 Temperature Pulse Rate 67 Respiratory Rate 20 Blood Pressure 107/55 L Pulse Oximetry 97 100 96 Oxygen Delivery 09/23/21 20:15 09/24/21 00:00 09/24/21 08:00 Temperature 98.1 F 97.9 F Pulse Rate 56 L 51 L Respiratory Rate 16 18 Blood Pressure 132/73 112/66 Pulse Oximetry 95 97 99 Oxygen Delivery 09/24/21 08:00 09/24/21 14:00 Temperature 98.2 F Pulse Rate 59 L Respiratory Rate 20 Blood Pressure 108/64 Pulse Oximetry 98 Oxygen Delivery Room Air Intake/Output Intake/Output: Intake & Output 09/21/21 09/22/21 09/23/21 09/24/21 23:59 23:59 23:59 23:59 Intake Total 600 Output Total 0 Balance 600 Meds/Results Medications: Active Medications Generic Name Dose Route Start Last Admin Trade Name Freq PRN Reason Stop
[2021-09-24] MEDS: ATORVASTATIN 40 MG TABLET 80 MG PO (19:44)
[2021-09-24 19:50] VITALS: BP 132/74; PULSE 57; RESP 18; TEMP 36.6; O2SAT 100
[2021-09-24] MEDS: ONDANSETRON INJ 4 MG/2 ML VIAL IV PUSH (22:15)
[2021-09-25 05:48] VITALS: BP 126/58; PULSE 61; RESP 18; TEMP 36.7; O2SAT 97
[2021-09-25] MEDS: DOCUSATE SODIUM 100 MG CAPSULE PO (08:07)
[2021-09-25] MEDS: ACETAMINOPHEN 500 MG TABLET 1000 MG PO ×2 (08:07→12:04)
[2021-09-25] MEDS: PANTOPRAZOLE 40 MG TABLET PO (08:08)
[2021-09-25] MEDS: GABAPENTIN 300 MG CAPSULE 600 MG PO ×2 (08:08→12:04)
[2021-09-25] MEDS: methocarbamoL 500 MG TABLET 1000 MG PO ×2 (08:08→12:04)
[2021-09-25] MEDS: ENOXAPARIN 40 MG/0.4 ML SYRINGE SUB-Q (08:08)
[2021-09-25] MEDS: LEVOTHYROXINE SODIUM 150 MCG TABLET PO (08:09)
--- NOTE | 2021-09-25 09:36 | PM.DS ---
DS: Admitting Diagnosis Discharge Date 09/25/2021 Admitting Diagnosis fracture right tibia DS: Discharge Diagnosis Discharge Diagnosis (1) Closed fracture of right tibial plateau: Qualifiers: Encounter type: subsequent encounter Fracture healing: with routine healing Qualified Code(s): S82.141D - Displaced bicondylar fracture of right tibia, subsequent encounter for closed fracture with routine healing Code(s): S82.141A - Displaced bicondylar fracture of right tibia, initial encounter for closed fracture Status: Acute Assessment and Plan: Ortho consult, recommending conservative management. Patient placed in knee immobilizer. Pain meds ordered. PT/OT consulted status post fall and fracture of right tibia patient seen by Orthopedics recommended conservative management with knee mobilizer, ice, no weight-bearing on right lower extremity, to further evaluate the surgeon has ordered CT scan of bilateral knee to rule out of occult fracture, will continue PT OT and further recommendation to follow (2) Thyroid disorder: Code(s): E07.9 - Disorder of thyroid, unspecified Status: Acute Assessment and Plan: Continue Synthroid, check TSH (3) Fibromyalgia: Code(s): M79.7 - Fibromyalgia Status: Acute Assessment and Plan: Continue home meds, gabapentin increased to 600 t.i.d. DS: Summary Hospital Course Reason for hospitalization: Acute fracture Narrative: Greater than 30 minutes spent reviewing chart, evaluating, treating, counseling patient.? Anticipate less than 48 hour admission, will admit under observation. 56-year-old female past medical history of hypothyroidism, hyperlipidemia.? Presents for right knee pain after an injury.? She was pulled off her porch by her dog and fell 4 ft.? Denies hitting her head or any loss of consciousness.? Workup in ED remarkable for comminuted fracture involving the intercondylar eminence of the proximal tibia and medial tibial plateau of the right leg.? Ortho was consulted, recommended conservative management and patient was placed in a knee immobilizer. Hospital Course: ?status post fall and fracture of right tibia patient seen by Orthopedics recommended conservative management with? knee mobilizer,? ice,? no weight-bearing on right lower extremity, to further evaluate the surgeon has ordered CT scan of bilateral knee to rule out of occult? fracture, there were no bony injury, continued PT OT, today patient states pain is coming is able to ambulate with crutches as instructed by the orthopedic surgeon, seen by orthopedic surgeon patient is clinically stable will discharge patient today Time Spent with Patient Time attestation: Total time spent providing and/or coordinating discharge services: Exam Narrative: Patient is comfortable, NAD HEENT: eyes are clear and none icteric LUNGS: normal respiratory effort ABD: not distended Lower extremities: no edema MS: bilateral lower extremity no obvious deformity SKIN: nonjaundiced Neuro: grossly intact. Discharge Plan Discharge Attending physician on discharge: George Ruby Consulting providers: Juan Miguel Osman ; Africa Huerta Discharging Clinician: George Ruby Patient Disposition: Home Health Service Activity: as tolerated Diet: heart healthy Discharge Instructions: patient to follow discharge care instruction from her orthopedic surgeon and follow-up as scheduled, patient to follow with her primary care provider soon as possible, patient instructed any symptoms redeveloped to go to nearest emergency department Per Care Coordination PT/OT with [facility] [phone] Patient Instructions: Antibiotic Form Stand Alone Forms: General Discharge Information Follow-up/Referrals: Juan Miguel Osman MD [Physician] - [facility],ALEJANDRA Freedman [Primary Care Provider] - Discharge Medications: Continued atorvastatin 40 mg tablet 80 m
[2021-09-25 12:01] VITALS: O2SAT 94
[2021-09-25] MEDS: oxyCODONE HCL (*CRX) 5 MG TAB IR 10 MG PO (12:04)
--- NOTE | 2021-09-25 12:27 | PM.PNORT ---
Progress Note: A&P Assessment and Plan (1) Closed fracture of right tibial plateau: Qualifiers: Encounter type: subsequent encounter Fracture healing: with routine healing Qualified Code(s): S82.141D - Displaced bicondylar fracture of right tibia, subsequent encounter for closed fracture with routine healing Code(s): S82.141A - Displaced bicondylar fracture of right tibia, initial encounter for closed fracture Status: Acute Assessment and Plan: CT scan of the right knee performed yesterday shows bicondylar proximal tibial plateau fracture with comminution. Relatively well-maintained alignment. CT scan reviewed with the patient. Type of fracture discussed in detail. Treatment options including operative and non operative treatment reviewed. Risks, benefits and alternatives of each treatment discussed in detail. The patient has declined surgical treatment. Risks of treatment decision discussed in detail. Potential problems with displacement of the fracture, loss of alignment, nonunion, malunion and dysfunction discussed in detail. The patient's questions were answered. They verbalized understanding and agreement. Conservative treatment with immobilization, ice, compression and elevation. continue with knee immobilizer. Nonweightbearing status. Gentle range of motion. Plan to follow up in orthopedic office in 3 to 4 weeks for new radiographs. (2) Left knee sprain: Code(s): S83.92XA - Sprain of unspecified site of left knee, initial encounter Status: Acute Assessment and Plan: CT scan of the left knee shows no fracture or subluxation. Degenerative changes noted. Exam consistent with knee sprain. Conservative treatment with ice, compression and elevation. Weightbearing as tolerated. Follow up in orthopedic office in 3 to 4 weeks. Subjective Subjective Date/Time Seen: 09/25/21 12:27 Principal diagnosis: Right tibial plateau fracture Interval history: patient admitted through the emergency room September 23. Bilateral knee pain and after injury. States that left knee feels little bit better. Patient had CT scan of both knees yesterday. Review of Systems Constitutional: Constitutional: Denies fever(s) Eyes: Eyes: Denies blurry vision ENT: Reports Normal hearing present Cardiovascular: Cardiovascular: Denies chest pain and Denies dyspnea Respiratory: Respiratory: Denies dyspnea and Denies wheezing Gastrointestinal: Gastrointestinal: Denies abdominal pain Genitourinary: Genitourinary: Denies urinary urgency Musculoskeletal: Musculoskeletal: Reports as per HPI and Denies numbness Integumentary/Breasts: Skin/Breast: Denies changing lesions and Denies sores Neurologic: Reports Normal hearing present, Denies behavioral changes, Denies confusion, Denies numbness and Denies convulsions Psychiatric: Psychiatric: Denies behavioral changes, Denies confusion and Denies hallucinations Endocrine: Endocrine: Denies heat intolerance Hematologic/Lymphatic: Hematologic/Lymphatic: Denies easy bleeding Allergic/Immunologic: Allergic/Immunologic: Denies wheezing Exam Const: General: No confusion Orientation/consciousness: patient oriented x3 and No confusion HENMT: Head: normal to inspection, normocephalic and atraumatic Eyes: Conjunctivae: conjunctivae normal Sclera: sclerae normal Neck: Neck: supple and nontender Chest: Chest palpation & inspection: normal inspection of the chest Resp: Effort & Inspection: normal respiratory effort and no audible wheezes Cardio: Rate: regular rate Rhythm: regular rhythm : General: Yes deferred Skin: General skin exam: no rashes or lesions noted Neuro: General: patient oriented x3 and No confusion Cranial nerves: Yes Normal hearing present Extrem: General: capillary refill normal Right upper extremity: normal to inspection Left upper extremity: normal to inspection Right lower extremity: hip/thigh Details: normal
[2021-09-25] MEDS: ONDANSETRON INJ 4 MG/2 ML VIAL IV PUSH (13:49)
[2021-09-25 14:14] VITALS: BP 120/54; PULSE 59; RESP 16; TEMP 36.5; O2SAT 98
== END 2021-09-25 15:30 | disposition home health service (06) ==
LOC: ANHED 18:21 → ANH3MEDSUR 20:25 → ANH3MED 20:48
PROVIDERS: Internal Medicine; Admitting Provider Family Medicine; Emergency Provider General Practice; PCP Nurse Practitioner Family; Visit Provider Family Medicine
DX: S82.141A Displaced bicondylar fracture of right tibia, initial encounter for closed fracture (principal); S22.089A Unspecified fracture of T11-T12 vertebra, initial encounter for closed fracture; M25.061 Hemarthrosis, right knee; S83.92XA Sprain of unspecified site of left knee, initial encounter; W17.89XA Other fall from one level to another, initial encounter; Y92.008 Other place in unspecified non-institutional (private) residence as the place of occurrence of the external cause; M16.0 Bilateral primary osteoarthritis of hip; M17.11 Unilateral primary osteoarthritis, right knee; M19.011 Primary osteoarthritis, right shoulder; M47.814 Spondylosis without myelopathy or radiculopathy, thoracic region; M47.816 Spondylosis without myelopathy or radiculopathy, lumbar region; E78.00 Pure hypercholesterolemia, unspecified; E07.9 Disorder of thyroid, unspecified; E03.9 Hypothyroidism, unspecified; M79.7 Fibromyalgia; E78.5 Hyperlipidemia, unspecified; F17.200 Nicotine dependence, unspecified, uncomplicated; Z79.51 Long term (current) use of inhaled steroids; Z79.1 Long term (current) use of non-steroidal anti-inflammatories (NSAID); Z79.899 Other long term (current) drug therapy
CPT/HCPCS: 36415; 71046; 72128; 72131; 73030; 73521; 73564; 73700; 80048; 84443; 85025; 96372; 96374; 96375; 97161; 97166; 97530; 97535; 99285; A9270; G0378; G0379; J1650; J2270; J2405

== ENCOUNTER 2023-10-08 10:54 | Emergency (ER) | payer OTHER, SELFPAY ==
[2023-10-08 11:05] VITALS: BP 117/69; PULSE 70; RESP 19; TEMP 36.6; O2SAT 97
--- NOTE | 2023-10-08 11:10 | ED.DENTAL ---
HPI - Dental/Oral General Chief complaint: Dental/Oral Stated complaint: Dental Pain Time Seen by Provider: 10/08/23 11:10 Source: patient, RN notes reviewed and old records reviewed Mode of arrival: ambulatory Limitations: no limitations History of Present Illness HPI Narrative: Patient presents with complaints of right lower dental pain for 2 days. She denies any injury or trauma. She denies any fever, chills, sweats. She has been taking [id number] medicine with poor results. She is able to manage her own secretions. Continues to be able to eat and drink without difficulty. Eating does aggravate the pain. Related Data Home Medications Medication Instructions Recorded Confirmed cetirizine 10 mg tablet 10 mg PO DAILY 02/03/21 01/06/22 docusate sodium 100 mg tablet 100 mg PO BID 02/03/21 01/06/22 methocarbamol 500 mg tablet 1,000 mg PO TID 02/03/21 01/06/22 pantoprazole 40 mg tablet,delayed 40 mg PO DAILY 02/03/21 01/06/22 release Fish Oil 2,400 mg PO DAILY 09/23/21 01/06/22 Vitamin D3 2,000 unit PO DAILY 09/23/21 01/06/22 aripiprazole 2 mg tablet 2 mg PO HS 09/23/21 01/06/22 gabapentin 300 mg capsule 300 mg PO TID 09/23/21 01/06/22 latanoprost 0.005 % eye drops 1 drp EACH EYE HS 09/23/21 01/06/22 brimonidine 0.2 % eye drops drp 10/08/23 calcitriol 0.25 mcg capsule mcg 10/08/23 ezetimibe 10 mg tablet mg 10/08/23 levothyroxine 137 mcg tablet mcg 10/08/23 liothyronine 5 mcg tablet mcg 10/08/23 rosuvastatin 20 mg tablet mg 10/08/23 Allergies Allergy/AdvReac Type Severity Reaction Status Date / Time citalopram [From Celexa] Allergy Hives Verified 10/08/23 11:06 Review of Systems Review of Systems: All systems reviewed & are unremarkable except as noted in HPI and below Constitutional: Constitutional: Reports no additional constitutional complaints ENT: Reports system reviewed and no additional complaints, except as documented, Reports as per HPI, Reports dental pain and Reports facial pain Cardiovascular: Cardiovascular: Reports as per HPI and Reports no additional cardiovascular complaints Respiratory: Respiratory: Reports as per HPI and Reports no additional respiratory complaints Gastrointestinal: Gastrointestinal: Reports no additional gastrointestinal complaints [facility] Past Medical History Medical History Anxiety Depression Dizziness Glaucoma High cholesterol HLD (hyperlipidemia) Hypothyroidism Knee fracture, left Left knee sprain Memory loss Thyroid disorder Wears glasses Surgical History Surgical History Hx of appendectomy January 2021 Family History Family History Other Arthritis Asthma Cerebrovascular accident Depression Diabetes mellitus HLD (hyperlipidemia) Kidney disorder Neuropathy Social History Social History Smoking packs per day: 1 Smoking cigarettes per day: 20.0 Years smoked: 40 Smoking pack-years: 40.00 Smoking status: Current every day smoker Tobacco type: cigarettes Alcohol intake: never Substance use: never Occupation/Education: other Gender identity (if verbalized by the patient): Female Spiritual care concerns: No Exam Const: General: cooperative, no acute distress, alert and awake Orientation/consciousness: oriented to person, oriented to place and oriented to time HENMT: Head: normal to inspection Ears: TM's normal bilaterally Mouth: Yes moist mucous membranes Teeth and gingiva: abnormal tooth and associated gingiva and poor dentition Throat: posterior oropharynx normal Resp: Effort & Inspection: normal respiratory effort and able to speak in complete sentences Auscultation: clear to auscultation bilaterally, no crackles, no rales, no rhonchi and no wheezes Cardio: Palpation: normal PMI
== END 2023-10-08 11:25 | disposition home or self-care (01) ==
PROVIDERS: Emergency Provider Nurse Practitioner Family; PCP Nurse Practitioner Family
DX: K04.7 Periapical abscess without sinus (principal); F17.210 Nicotine dependence, cigarettes, uncomplicated; E78.00 Pure hypercholesterolemia, unspecified; E03.9 Hypothyroidism, unspecified; H40.9 Unspecified glaucoma
CPT/HCPCS: 99213; G0463

== ENCOUNTER 2023-11-29 13:45 | Emergency (ER) | payer OTHER, SELFPAY ==
[2023-11-29 13:57] VITALS: BP 124/71; PULSE 78; RESP 16; TEMP 36.4; O2SAT 98
--- NOTE | 2023-11-29 14:48 | ED.DENTAL ---
HPI - Dental/Oral General Chief complaint: Dental/Oral Stated complaint: Dental Pain Time Seen by Provider: 11/29/23 14:50 Source: patient, RN notes reviewed and old records reviewed Mode of arrival: ambulatory Limitations: no limitations History of Present Illness HPI Narrative: 58-year-old female presents to the [facility] with complaints of dental pain and swelling that started yesterday. Very poor dentition. Reports that she does have an appointment with [facility] in [place] next Tuesday. Treatment prior to arrival: none Related Data Home Medications Medication Instructions Recorded Confirmed cetirizine 10 mg tablet 10 mg PO DAILY 02/03/21 11/29/23 docusate sodium 100 mg tablet 100 mg PO BID 02/03/21 11/29/23 methocarbamol 500 mg tablet 1,000 mg PO TID 02/03/21 11/29/23 pantoprazole 40 mg tablet,delayed 40 mg PO DAILY 02/03/21 11/29/23 release Fish Oil 2,400 mg PO DAILY 09/23/21 11/29/23 Vitamin D3 2,000 unit PO DAILY 09/23/21 11/29/23 aripiprazole 2 mg tablet 2 mg PO HS 09/23/21 11/29/23 gabapentin 300 mg capsule 300 mg PO TID 09/23/21 11/29/23 latanoprost 0.005 % eye drops 1 drp EACH EYE HS 09/23/21 11/29/23 brimonidine 0.2 % eye drops 1 drp DIRECTED 10/08/23 11/29/23 calcitriol 0.25 mcg capsule 0.25 mcg DIRECTED 10/08/23 11/29/23 ezetimibe 10 mg tablet 10 mg DIRECTED 10/08/23 11/29/23 levothyroxine 137 mcg tablet 137 mcg DIRECTED 10/08/23 11/29/23 liothyronine 5 mcg tablet 5 mcg DIRECTED 10/08/23 11/29/23 rosuvastatin 20 mg tablet 20 mg DIRECTED 10/08/23 11/29/23 Allergies Allergy/AdvReac Type Severity Reaction Status Date / Time citalopram [From Celexa] Allergy Hives Verified 10/08/23 11:06 Review of Systems Review of Systems: All systems reviewed & are unremarkable except as noted in HPI and below Constitutional: Constitutional: Reports no additional constitutional complaints ENT: Reports as per HPI and Reports dental pain (Right lower) Cardiovascular: Cardiovascular: Reports no additional cardiovascular complaints, Denies chest pain and Denies dyspnea Respiratory: Respiratory: Reports no additional respiratory complaints, Denies chest congestion, Denies cough and Denies dyspnea Gastrointestinal: Gastrointestinal: Reports no additional gastrointestinal complaints, Denies abdominal pain, Denies nausea and Denies vomiting Musculoskeletal: Musculoskeletal: Reports no additional musculoskeletal complaints Integumentary/Breasts: Skin/Breast: Reports system reviewed and no additional complaints, except as docu PMFSH Past Medical History Medical History Anxiety Depression Dizziness Glaucoma High cholesterol HLD (hyperlipidemia) Hypothyroidism Knee fracture, left Left knee sprain Memory loss Thyroid disorder Wears glasses Surgical History Surgical History Hx of appendectomy January 2021 Family History Family History Other Arthritis Asthma Cerebrovascular accident Depression Diabetes mellitus HLD (hyperlipidemia) Kidney disorder Neuropathy Social History Social History Smoking packs per day: 1 Smoking cigarettes per day: 20.0 Years smoked: 40 Smoking pack-years: 40.00 Smoking status: Current every day smoker Tobacco type: cigarettes Alcohol intake: never Substance use: never Occupation/Education: other Gender identity (if verbalized by the patient): Female Spiritual care concerns: No Comments At the time of my signature, I reviewed and agree with the nursing past medical, surgical, social, and family history. There is no relevant family history pertinent to the patient complaint. Exam Const: General: cooperative, healthy appearing, comfortable, no acute distress, well developed, alert and well nouris
== END 2023-11-29 15:04 | disposition home or self-care (01) ==
PROVIDERS: Emergency Provider Nurse Practitioner; PCP Nurse Practitioner Family
DX: K02.9 Dental caries, unspecified (principal); K04.7 Periapical abscess without sinus; F17.210 Nicotine dependence, cigarettes, uncomplicated; E78.00 Pure hypercholesterolemia, unspecified; E78.5 Hyperlipidemia, unspecified; H40.9 Unspecified glaucoma
CPT/HCPCS: 99213; G0463